=== PATIENT | male | born 1990 | race Caucasian/White ===

== ENCOUNTER → 2023-01-16 15:02 | Outpatient (CLI) | payer BC, SELFPAY ==
[2023-01-16 16:56] LABS: Basophils # 0.1 K/mm3 (0-0.2); Basophils % 0.7 % (0.1-2.0); Eosinophils # 0.7 K/mm3 (0.0-0.4); Eosinophils % 7.3 % (0.1-12.0); Hematocrit 45.3 % (42.0-52.0); Hemoglobin 15.1 g/dL (14.1-18.0); Lymphocytes # 2.8 K/mm3 (0.7-4.5); Lymphocytes % 30.9 % (10-50); Mean Corpuscular HGB Conc 33.3 g/dL (31.8-35.4); Mean Corpuscular Hemoglobin 29.8 pg (27.0-31.2); Mean Corpuscular Volume 89.5 fl (80-94); Mean Platelet Volume 7.1 fl (7.4-10.4); Monocytes # 0.5 K/mm3 (0.1-1.0); Monocytes % 5.4 % (1.7-9.3); Neutrophils % 55.7 % (37.0-80.0); Platelet Count 230 K/mm3 (142-424); Red Blood Count 5.07 M/mm3 (4.60-6.20); Red Cell Distribution Width 12.9 % (11.5-17.5); White Blood Count 8.9 K/mm3 (4.8-10.8)
[2023-01-16 17:10] LABS: Chloride 100 mmol/L (98-107); Potassium 4.7 mmoL/L (3.5-5.1); Sodium 139 mmol/L (136-145)
[2023-01-16 17:12] LABS: Blood Urea Nitrogen 14 mg/dl (9-20); Estimated Glomerular Filt Rate 97 ml/min (>60); GFR (African American) 117 ML/MIN (>60)
[2023-01-16 17:13] LABS: Alanine Aminotransferase 62 U/L (12-78); Albumin Level 4.3 g/dl (3.5-5.0); Albumin/Globulin Ratio 1.3 (1.1-1.8); Alkaline Phosphatase 61 U/L (38-126); Anion Gap 15.7 mEq/L (5-15); Aspartate Amino Transferase 52 U/L (17-59); Bilirubin,Total 0.6 mg/dl (0.2-1.3); Calcium 9.2 mg/dl (8.4-10.2); Carbon Dioxide 28 mmol/L (22.0-30.0); Globulin 3.4 g/dL (1.3-3.2); Glucose 97 mg/dl (74-100); Total Protein,Serum 7.7 g/dl (6.3-8.2); Uric Acid 7.4 mg/dl (3.5-8.5)
[2023-01-16 17:40] LABS: Thyroid Stimulating Hormone 2.33 uIU/mL (0.465-4.68)
[2023-01-16 17:54] LABS: Erythrocyte Sedimentation Rate 20 mm/hr (0-15)
[2023-01-16 18:06] LABS: Hemoglobin A1C 5.5 % (4.0-6.0)
[2023-01-18 12:37] LABS: RA Latex Turbid. <10.0 IU/mL (<14.0)
[2023-01-21 11:15] LABS: Antinuclear Antibodies, IFA Negative (.)
[2023-01-25 21:05] LABS: Antinuclear Antibodies (ANA) Negative
== END ==
PROVIDERS: PCP Nurse Practitioner Family; Visit Provider Nurse Practitioner Family
DX: R53.83 Other fatigue; Z79.899 Other long term (current) drug therapy
CPT/HCPCS: 80053; 83036; 84443; 84550; 85025; 85651; 86038; 86225; 86235; 86431

== ENCOUNTER → 2023-05-16 23:35 | Outpatient (CLI) | payer BC, SELFPAY ==
[2023-05-16 18:04] LABS: Cholesterol 194 mg/dl (140-200); HDL Cholesterol 28 mg/dl (40-60); Triglycerides 147 mg/dl (30-150); VLDL Cholesterol 29 mg/dL (0-40)
[2023-05-16 18:05] LABS: Chol/HDL Ratio 6.9 (1-3.5)
[2023-05-16 18:15] LABS: Direct LDL Cholesterol 129.28 mg/dL (100-129)
[2023-05-18 09:23] LABS: Testosterone,Total 275 ng/dL (264-916)
== END ==
PROVIDERS: PCP Nurse Practitioner Family; Visit Provider Nurse Practitioner Family
DX: I10 Essential (primary) hypertension (principal); R53.83 Other fatigue
CPT/HCPCS: 80061; 84403

== ENCOUNTER 2024-03-30 10:42 | Outpatient (CLI) | payer BC, SELFPAY ==
[2024-03-30 17:33] LABS: Basophils # 0.1 K/mm3 (0-0.2); Basophils % 1.1 % (0.1-2.0); Eosinophils # 0.7 K/mm3 (0.0-0.4); Eosinophils % 8.7 % (0.1-12.0); Hematocrit 46.8 % (42.0-52.0); Hemoglobin 15.6 g/dL (14.1-18.0); Lymphocytes # 1.7 K/mm3 (0.7-4.5); Lymphocytes % 21.9 % (10-50); Mean Corpuscular HGB Conc 33.2 g/dL (31.8-35.4); Mean Corpuscular Hemoglobin 30.4 pg (27.0-31.2); Mean Corpuscular Volume 91.3 fl (80-94); Mean Platelet Volume 9.7 fl (7.4-10.4); Monocytes # 0.7 K/mm3 (0.1-1.0); Monocytes % 8.7 % (1.7-9.3); Neutrophils # 4.5 K/mm3 (1.8-7.8); Neutrophils % 59.6 % (37.0-80.0); Platelet Count 210 K/mm3 (142-424); Red Blood Count 5.13 M/mm3 (4.60-6.20); Red Cell Distribution Width 13.3 % (11.5-17.5); White Blood Count 7.5 K/mm3 (4.8-10.8)
[2024-03-30 17:46] LABS: Chloride 107 mmol/L (98-107)
[2024-03-30 17:49] LABS: Alanine Aminotransferase 54 U/L (12-78); Albumin Level 4.3 g/dl (3.5-5.0); Albumin/Globulin Ratio 1.3 (1.1-1.8); Alkaline Phosphatase 48 U/L (38-126); Aspartate Amino Transferase 50 U/L (17-59); Bilirubin,Total 0.5 mg/dl (0.2-1.3); Blood Urea Nitrogen 10 mg/dl (9-20); Calcium 9.1 mg/dl (8.4-10.2); Cholesterol 206 mg/dl (140-200); Estimated Glomerular Filt Rate 85 ml/min (>60); GFR (African American) 103 ML/MIN (>60); Globulin 3.2 g/dL (1.3-3.2); Glucose 77 mg/dl (74-100); Total Protein,Serum 7.5 g/dl (6.3-8.2); Triglycerides 73 mg/dl (30-150); VLDL Cholesterol 15 mg/dL (0-40)
[2024-03-30 17:50] LABS: Chol/HDL Ratio 5.7 (1-3.5); HDL Cholesterol 36 mg/dl (40-60)
[2024-03-30 18:01] LABS: Direct LDL Cholesterol 148.58 mg/dL (100-129)
[2024-03-30 18:11] LABS: 25-OH Vitamin D, Total 42.4 ng/mL (30-100)
[2024-03-30 19:30] LABS: Hemoglobin A1C 5.5 % (4.0-6.0)
[2024-03-30 21:51] LABS: Carbon Dioxide 24 mmol/L (22.0-30.0); Sodium 141 mmol/L (136-145)
[2024-03-31 15:19] LABS: HIV (1&2) Antibody Rapid NON REACTIVE
[2024-04-01 08:34] LABS: HCV Ab Non Reactive (Non Reactive)
[2024-04-01 15:04] LABS: Testosterone,Total 172 ng/dL (264-916)
== END 2024-03-30 23:59 | disposition home or self-care (01) ==
LOC: LAB.DROPOF 04-01 10:43
PROVIDERS: PCP Nurse Practitioner Family; Visit Provider Nurse Practitioner Family
DX: Z11.59 Encounter for screening for other viral diseases (principal); Z11.4 Encounter for screening for human immunodeficiency virus [HIV]; E55.9 Vitamin D deficiency, unspecified; I10 Essential (primary) hypertension; Z87.891 Personal history of nicotine dependence; E66.9 Obesity, unspecified; R79.89 Other specified abnormal findings of blood chemistry; R73.03 Prediabetes; Z68.41 Body mass index [BMI] 40.0-44.9, adult
CPT/HCPCS: 80053; 80061; 82306; 83036; 84403; 85025

== ENCOUNTER 2024-10-05 16:47 | Outpatient (CLI) | payer BC, SELFPAY ==
[2024-10-05 16:35] LABS: Basophils # 0.1 K/mm3 (0-0.2); Basophils % 0.9 % (0.1-2.0); Eosinophils # 0.7 K/mm3 (0.0-0.4); Eosinophils % 8.7 % (0.1-12.0); Hematocrit 46.6 % (42.0-52.0); Hemoglobin 15.5 g/dL (14.1-18.0); Lymphocytes # 2.3 K/mm3 (0.7-4.5); Lymphocytes % 29.4 % (10-50); Mean Corpuscular HGB Conc 33.3 g/dL (31.8-35.4); Mean Corpuscular Hemoglobin 29.5 pg (27.0-31.2); Mean Corpuscular Volume 88.6 fl (80-94); Mean Platelet Volume 10.4 fl (7.4-10.4); Monocytes # 0.6 K/mm3 (0.1-1.0); Monocytes % 7.7 % (1.7-9.3); Neutrophils # 4.2 K/mm3 (1.8-7.8); Neutrophils % 53.2 % (37.0-80.0); Platelet Count 247 K/mm3 (142-424); Red Blood Count 5.26 M/mm3 (4.60-6.20); Red Cell Distribution Width 13.2 % (11.5-17.5)
[2024-10-06 08:25] LABS: Testosterone,Total 176 ng/dL (264-916)
== END 2024-10-05 23:59 | disposition home or self-care (01) ==
LOC: LAB.DROPOF 16:48
PROVIDERS: PCP Family Medicine; Visit Provider Family Medicine
DX: R79.89 Other specified abnormal findings of blood chemistry (principal)
CPT/HCPCS: 84403; 85025

== ENCOUNTER 2024-12-07 09:42 | Outpatient (CLI) | payer BC, SELFPAY ==
[2024-12-07 17:29] LABS: Basophils # 0.1 K/mm3 (0-0.2); Basophils % 0.8 % (0.1-2.0); Eosinophils # 0.6 K/mm3 (0.0-0.4); Eosinophils % 7.4 % (0.1-12.0); Hematocrit 53.6 % (42.0-52.0); Hemoglobin 17.4 g/dL (14.1-18.0); Lymphocytes # 2.1 K/mm3 (0.7-4.5); Lymphocytes % 28.1 % (10-50); Mean Corpuscular HGB Conc 32.5 g/dL (31.8-35.4); Mean Corpuscular Hemoglobin 29.1 pg (27.0-31.2); Mean Corpuscular Volume 89.6 fl (80-94); Mean Platelet Volume 10.8 fl (7.4-10.4); Monocytes # 0.5 K/mm3 (0.1-1.0); Monocytes % 6.7 % (1.7-9.3); Neutrophils # 4.3 K/mm3 (1.8-7.8); Neutrophils % 56.7 % (37.0-80.0); Platelet Count 234 K/mm3 (142-424); Red Blood Count 5.98 M/mm3 (4.60-6.20); Red Cell Distribution Width 12.8 % (11.5-17.5); White Blood Count 7.6 K/mm3 (4.8-10.8)
[2024-12-07 18:33] LABS: Alanine Aminotransferase 49 U/L (12-78); Albumin Level 4.5 g/dl (3.5-5.0); Albumin/Globulin Ratio 1.7 (1.1-1.8); Alkaline Phosphatase 44 U/L (38-126); Aspartate Amino Transferase 39 U/L (17-59); Bilirubin,Total 0.5 mg/dl (0.2-1.3); Blood Urea Nitrogen 11 mg/dl (9-20); Calcium 9.7 mg/dl (8.4-10.2); Carbon Dioxide 29 mmol/L (22.0-30.0); Chloride 107 mmol/L (98-107); Estimated Glomerular Filt Rate 109 ml/min (>60); GFR (African American) 132 ML/MIN (>60); Globulin 2.7 g/dL (1.3-3.2); Glucose 69 mg/dl (74-100); Sodium 140 mmol/L (136-145); Total Protein,Serum 7.2 g/dl (6.3-8.2); Uric Acid 8.5 mg/dl (3.5-8.5)
[2024-12-07 19:02] LABS: Thyroid Stimulating Hormone 2.82 uIU/mL (0.465-4.68)
[2024-12-09 08:32] LABS: Testosterone,Total 487 ng/dL (264-916)
== END 2024-12-07 23:59 | disposition home or self-care (01) ==
LOC: LAB.DROPOF 12-09 11:46
PROVIDERS: PCP Family Medicine; Visit Provider Family Medicine
DX: E66.9 Obesity, unspecified (principal); I10 Essential (primary) hypertension; M10.9 Gout, unspecified
CPT/HCPCS: 80053; 84403; 84443; 84550; 85025

== ENCOUNTER 2025-07-23 11:33 | Outpatient (CLI) | payer BC, SELFPAY ==
--- OUTSIDE RECORDS SUMMARY | 2025-06-24 05:00 | XMS_ITS | Encounter Summary ---
Author Organization [facility] Address [address] [place] [address] Phone [email or web address] Care Team Providers Care Field Support Specialist Name Role Phone Provider, No Primary Care Provider Unavailabl e Reason for Visit * Reason Comments Return to Work / Duty Encounter Details Date Type Department Care Team (Latest Contact Info) Description 06/24/2025 6:00 AM EDT Office [facility] [address] [facility] [address] [place] [address] Violeta Salcido MD [address] [place] [address] Encounter for fitness for duty examination (Primary Dx); Lateral epicondylitis of right elbow; Cubital tunnel syndrome on right Social History Tobacco Use Types Packs/Day Years Used Date Smoking Tobacco: Former E-Cigarettes Quit: 2024 Smokeless Tobacco: Former Chew Intimate Partner Violence Answer Date R ecorded Insults You 0 10/24/2020 Threatens You 0 10/24/2020 Screams at You 0 10/24/2020 Physically Hurt Not on file 10/24/2020 Intimate Partner Violence Score Not on file 10/24/2020 Depression Answer Date Recorded PHQ Total Score 0 09/11/2023 Stress Answer Date Recorded Stress in your Life Not on file 07/22/2024 Dealing with Stress 3 07/22/2024 Sex and Gender Information Value Date Recorded Sex Assigned at Not on file 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 Gender Identity Not on file Sexual Orientation Not on file documented as of this encounter Last Filed Vital Signs Vital Sign Reading Time Taken Comments Blood Pressure 133/87 06/24/2025 5:54 AM EDT Pulse 87 06/24/2025 5:54 AM EDT Temperature - - Respiratory Rate 14 06/24/2025 5:54 AM EDT Oxygen Saturation - - Inhaled Oxygen Concentration - - Weight - - Height - - Body Mass Index - - documented in this encounter Patient Instructions * Patient Instructions* Violeta Salcido MD - 06/24/2025 6:00 AM EDT Reintro on 06/24/25 x 10 days then full duty after Follow up with personal doctor as needed documented in this encounter Progress Notes * Violeta Salcido MD - 06/24/2025 6:00 AM EDT Subjective Rex Sanchez is a 35 y.o. male who presents for personal return to work. Workday ID #: [id number] Cost Center: MA0 Length of Time in Current Group: 4 years Shift: 1 Employer: [employer] Employee Status: Full-time GL Name: James San Case #: [id number] Body Part/ Side: right elbow Date of Injury: 05/11/2025 Denied Claim : 06/22/25 - Kenzie Mix DOS: NA PROCEDURE: Pending MRI SURGEON: Jalen and his PA RELEASE: 06/24/25 Personal fit for duty. His claim has been denied base on date of injury per hospice team lead. He has notmissed a day of work with denial from [facility]. He has been off all jobs since May. ~ 3-4 weeks. He called Jalen's office and he medical stafff released him. Denies changes in elbow but states he can't afford to be off work. Hold on proceeding with MRI with personal insurance for now. He reports mild improvement with therapy. A little pain but not like it was . He did not go to therapy yesterday d/t denial. He did not have a follow up appt b/c he was pending MRI approval. Pain rated in general at rest 09/25. Triage nurse: Yoli Serrano RN HPI TM has been released back to full duty following work comp claim denial. TM was restricted, did therapy for 4 weeks prior to denial. He went to see his specialist and was released to full duty. He has some soreness but feels ready to RTW. No numbness or tingling. History Reviewed: Tobacco Allergies Meds Problems Med Hx Surg Hx Objective Visit Vitals BP 133/87 (Patient Position: Sitting) Pulse 87 Resp 14 Smoking Status Former Review of Systems Constitutional: Negative. Musculoskeletal: No additional complaints except in CC and HPI. PHQ-9 Total Score: 0 (05/24/2025 8:05 AM) Physical Exam Constitutional: Appears well-developed. BMI >/= 40 (Class 3 Obese). No distress. Nursing note and vitals reviewed. Musculoskeletal: Right Elbow Inspection Swelling: none Erythema: none Palpation Warmth: normal Tenderness: mild at Lateral epicondyle Tinel's: negative UN Subluxation: negative Vascular Pulses: present and normal Neuromotor ROM: normal without pain on PROM Strength: good Customer Service Sales Associate: good Sensation: light touch - intact Special Tests Cozen's: mild Maudsley: negative Pain with gripping with elbow fully extended: negative Pain with resisted supination: mild Pain with resisted pronation: negative Elbow Flexion Test: negative Assessment: ICD-10-CM ICD-9-CM 1. Encounter for fitness for duty examination Z02.89 V70.5 2. Lateral epicondylitis of right elbow M77.11 726.32 3. Cubital tunnel syndrome on right G56.21 354.2 No orders of the defined types were placed in this encounter. Patient Instructions Reintro on 06/24/25 x 10 days then full duty after Follow up with personal doctor as needed documented in this encounter Plan of Treatment Not on file documented as of this encounter Visit Diagnoses Diagnosis Encounter for fitness for duty examination- Primary Lateral epicondylitis of right elbow Cubital tunnel syndrome on right documented in this encounter Care Teams Field Support Specialist Relationship Specialty Start Date End Date Provider, [place] [address] PCP - General Drywall Sander 01/15/22 documented as of this encounter
[2025-07-23 17:05] LABS: Hematocrit 43.9 % (42.0-52.0); Hemoglobin 15.1 g/dL (14.1-18.0); Immature Granulocytes % 0.3 %; Mean Corpuscular HGB Conc 34.4 g/dL (31.8-35.4); Mean Corpuscular Hemoglobin 29.7 pg (27.0-31.2); Mean Corpuscular Volume 86.2 fl (80-94); Nucleated Red Blood Cells % 0 %; Platelet Count 258 K/mm3 (142-424); Red Blood Count 5.09 M/mm3 (4.60-6.20); Red Cell Distribution Width-SD 39.7 fL; White Blood Count 10.6 K/mm3 (4.8-10.8)
[2025-07-23 18:07] LABS: Alanine Aminotransferase 46 U/L (12-78); Albumin Level 4.5 g/dl (3.5-5.0); Albumin/Globulin Ratio 1.3 (1.1-1.8); Alkaline Phosphatase 66 U/L (38-126); Anion Gap 13.6 mEq/L (5-15); Aspartate Amino Transferase 42 U/L (17-59); Bilirubin,Total 0.7 mg/dl (0.2-1.3); Blood Urea Nitrogen 13 mg/dl (9-20); Calcium 9.7 mg/dl (8.4-10.2); Carbon Dioxide 27 mmol/L (22.0-30.0); Chloride 101 mmol/L (98-107); Creatinine,Serum 0.90 mg/dl (0.66-1.25); Estimated Glomerular Filt Rate 95 ml/min (>60); GFR (African American) 115 ML/MIN (>60); Globulin 3.6 g/dL (1.3-3.2); Glucose 72 mg/dl (74-100); Potassium 4.6 mmoL/L (3.5-5.1); Sodium 137 mmol/L (136-145); Total Protein,Serum 8.1 g/dl (6.3-8.2)
--- OUTSIDE RECORDS SUMMARY | 2025-07-26 11:36 | XMS_ITS | Clinical Summary ---
Author Organization [facility] Address [address] [place] [address] Phone [email or web address] Care Team Providers Care Wire Frame Lamp Shade Maker Name Role Phone Provider, No Primary Care Provider Unavailabl e Allergies No known active allergies Medications loratadine (CLARITIN) 10 MG tablet Take 10 mg by mouth 1 (one) time each day. Active Cholecalcifero l (Vitamin D) 50 MCG (1999) capsule Active testosterone cypionate, DEPO-TESTOSTER ONE, injection 200 mg/mL IM 200 MG/ML INJECT 0.5 ML (CC) INTRAMUSCULARLY WEEKLY Active acetaminophen (TYLENOL 8 HOUR) 650 MG 8 hr tablet Take 650 mg by mouth. Do not crush, chew, or split. Active Semaglutide-We ight Management (Wegovy 0.25 MG/0.5ML SC) 0.25 MG/0.5ML solution auto-injector Inject by subcutaneous route. Activ e Active Problems Problem Noted Date Diagnosed Date Encounter for fitness for duty examination 01/15 Encounters Date Type Department Care Team Description 06/24/2025 6:00 AM EDT Office Visit [facility] [address] [place] [address] Violeta Salcido MD Encounter for fitness for duty examination (Primary Dx); Lateral epicondylitis of right elbow; Cubital tunnel syndrome on right 06/23/[address] [facility] [address] [place] [address] Charissa Olvera, EMT 06/23/[address] [facility] [address] [place] [address] Maria Luisa Del Rosario KINGS 06/14/[address] [facility] [address] [place] [address] Yoli Serrano RN 06/10/[address] 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 Gender Identity Not on file Sexual Orientation Not on file Last Filed Vital Signs Vital Sign Reading Time Taken Comments Blood Pressure 133/87 06/24/2025 5:54 AM EDT Pulse 87 06/24/2025 5:54 AM EDT Temperature 36.8 C (98.3 F) 02/23/2025 9:06 AM EDT Respiratory Rate 14 06/24/2025 5:54 AM EDT Oxygen Saturation 97% 06/10/2025 7:54 AM EDT Inhaled Oxygen Concentration - - Weight 158 kg (347 lb 9.6 oz) 05/24/2025 8:01 AM EDT Height 185.4 cm (6' 1 ) 05/24/2025 8:01 AM EDT Body Mass Index 45.86 05/24/2025 8:01 AM EDT Plan of Treatment Health Maintenance Due Date Last Done Comments Dental Cleaning/Exam 1988 HIV Screening 1988 Hepatitis C Screening 1988 HPV Immunization (1 - Male 3 -dose series) 2003 Hep B Infection Screening - Triple Screen 2006 Hepatitis B Immunization (1 of 3 - 19+ 3-dose series) 2007 Tetanus Diphtheria and Pertu ssis Immunization (1 - Tdap) 2007 Annual Preventive Exam 08/17/2020 08/17/2019 Covid-19 Immunization (1 - 2 025-26 season) 2025 Influenza Immunization (#1) 2025 HIB Immunization Aged Out No longer e ligible based on patient's age to complete this topic Hepatitis A Immunization Aged Out No longer eligible based on patient's age to complete this topic Pneumococcal Immunization Aged Out No longer eligible based on patient's age to complete this topic Polio Immunization Aged Out No longer eligible based on patient's age to complete this topic Varicella Immunization Aged Out No lo nger eligible based on patient's age to complete this topic Insurance OPT OUT NO COPAY NB Care Teams Wire Frame Lamp Shade Maker Relationship Specialty Start Date End Date Provider, [place] [address] PCP - General Timers Inspector 01/15/22
--- OUTSIDE RECORDS SUMMARY | 2025-07-26 11:37 | XMS_ITS | Encounter Summary ---
Author Organization [facility] Address [address] [place] [address] Phone [email or web address] Care Team Providers Care Belt Brander Name Role Phone Provider, No Primary Care Provider Unavailabl e Reason for Visit * Reason Onset Date Comments Return to Work / Duty 06/23/2025 CASE UPDAT E/COMMUNICATION- MSIG-D Encounter Details Date Type Department Care Team (Late st Contact Info) Description 06/23/[address] [place] [address] Maria Luisa Del Rosario MA [address] [place] [address] Social History Tobacco Use Types Packs/Day Years Used Date Smoking Tobacco: Every Day E-Cigarettes Smokeless Tobacco: Former Chew Intimate Partner Violence [...] on file 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 Gender Identity Not on file Sexual Orientation Not on file documented as of this encounter Progress Notes * Maria Luisa Del Rosario MA - 06/23/2025 9:17 AM EDT Received DENIAL from [facility] for RIGHT ELBOW Reason- Work not proximate cause Adjustor- Kenzie Mix Claim # [id number] DOI - 05.11.2025 documented in this encounter Plan of Treatment Not on file documented as of this encounter Visit Diagnoses Not on filedocumented in this encounter Care Teams Belt Brander Relationship Specialty Start Date End Date Provider, [place] [address] PCP - General Seconds Handler 01/15/22 documented as of this encounter
--- OUTSIDE RECORDS SUMMARY | 2025-07-26 11:37 | XMS_ITS | Continuity of Care Document ---
Author Organization [facility], ORTHOPEDICS [address] [place] [address] Care Team Providers Care Physical Therapy Attendant Name Role Phone IVY DALEY Phys. Med. & Rehab NARINDER BHATTI Orthopedic Surgeon [phone] CAITLYN ZAMARRIPA Account Classification Clerk [phone] Assessment Encounter Date Assessment Date Assessment LastModified by Organization Details LastModified Time 06/09/2025 06/09/2025 Intermittent pain at the left medial epicondyle [email or web address] Not available 06/07/2025 09:08:49 Plan of Treatment Reminders Order Date Submit Date Provider Last Modified By Organization Details Last Modified Time Details Appointments None record ed. Lab None record ed. Referral None record ed. Procedures None record ed. Surgeries None record ed. Imaging None record ed. Medication Orders None record ed. Patient TargetsNo targets recorded. Patient InstructionsNo instructions recorded. Reason for Referral None Reported. Problems No Known Problems Procedures Surgical History Date Name Laterality Status Provider Name and Address Organization Details Recorded Time 10/21/19 25 OT Therapeutic Exercise completed KARENA GARCIA/L, CHT [address] [place], [address], [facility] 10/21/2024 15:01:28 10/16/19 25 OT Therapeutic Exercise completed KARENA PINA/L, CHT [address] [place], [address], [facility] 10/16/2024 08:30:24 10/13/19 25 OT Therapeutic Exercise cancelled KARENA GARCIA/L, CHT [address] [place], [address], [facility] 10/13/2024 13:05:53 10/09/19 25 OT Therapeutic Exercise completed BASHIR COWAN, OTR/L, CHT [address] [place], [address], [facility] 10/09/2024 10:02:43 10/06/19 25 OT Therapeutic Exercise completed MACK GARCIA, OTR/L, CHT [address] [place], [address], [facility] 10/06/2024 16:31:00 09/11/20 24 OT Therapeutic Exercise completed MACK GARCIA, OTR/L, CHT [address] [place], [address], [facility] 09/11/2024 10:46:46 09/11/20 24 PT Hot/Cold Pack completed MACK GARCIA, OTR/L, CHT [address] [place], [address], [facility] 09/10/2024 09:40:43 09/02/20 24 OT Therapeutic Exercise completed MACK GARCIA, OTR/L, CHT [address] [place], [address], [facility] 09/02/2024 10:31:08 09/02/20 24 PT Hot/Cold Pack completed MACK GARCIA, OTR/L, CHT [address] [place], [address], [facility] 09/01/2024 16:40:01 08/26/20 24 OT Therapeutic Exercise completed MACK GARCIA, OTR/L, CHT [address] [place], [address], [facility] 08/26/2024 10:47:32 08/26/20 24 OT Manual Therapy completed MACK GARCIA, OTR/L, CHT [address] [place], [address], [facility] 08/25/2024 08:17:13 08/26/20 24 PT Hot/Cold Pack completed MACK GARCIA, OTR/L, CHT [address] [place], [address], [facility] 08/25/2024 08:17:13 08/19/20 24 OT Therapeutic Exercise completed MACK GARCIA, OTR/L, CHT [address] [place], [address], [facility] 08/19/2024 11:17:18 08/19/20 24 OT Manual Therapy completed MACK GARCIA, OTR/L, CHT [address] [place], [address], [facility] 08/19/2024 11:17:25 08/19/20 24 PT Hot/Cold Pack completed MACK GARCIA, OTR/L, CHT [address] [place], [address], [facility] 08/19/2024 07:53:38 08/05/20 24 OT Therapeutic Exercise completed MACK GARCIA, OTR/L, CHT [address] [place], [address], [facility] 08/05/2024 10:36:45 08/05/20 24 OT Manual Therapy completed MACK GARCIA, OTR/L, CHT [address] [place], [address], [facility] 08/05/2024 10:36:52 08/05/20 24 PT Hot/Cold Pack completed MACK GARCIA, OTR/L, CHT [address] [place], [address], [facility] 08/05/2024 10:37:11 07/29/20 24 OT Therapeutic Exercise completed MACK GARCIA, OTR/L, CHT [address] [place], [address], [facility] 07/29/2024 11:53:56 07/29/20 24 OT Manual Therapy completed MACK GARCIA, OTR/L, CHT [address] [place], [address], [facility] 07/29/2024 11:54:00 07/29/20 24 PT Hot/Cold Pack completed MACK GARCIA, OTR/L, CHT [address] [place], [address], [facility] 07/29/2024 07:40:32 07/22/20 24 Orthotic, WHO, Static Custom completed MACK GARCIA, OTR/L, CHT [address] [place], [address], [facility] 07/22/2024 14:01:44 07/22/20 24 OT Evaluation - Moderate complexity completed MACK GARCIA, OTR/L, CHT [address] [place], [address], [facility] 07/22/2024 14:01:39 07/22/20 24 OT Therapeutic Exercise completed MACK GARCIA, OTR/L, CHT [address] [place], [address], [facility] 07/22/2024 14:30:45 07/22/20 24 PT Hot/Cold Pack completed MACK GARCIA, OTR/L, CHT [address] [place], [address], [facility] 07/22/2024 14:01:45 07/09/20 24 Op Note completed NARINDER BHATTI MD [address] [place] [address], [address], [facility] 07/09/2024 10:13:51 06/15/20 24 Electromyography (EMG) with Nerve Conduction Study (NCV) completed IVY DALEY MD [address] [place] [address], [address], [facility] 06/15/2024 15:11:52 [place] Teeth Extraction completed Queenie Gibson [facility] 01/23/2024 16:02:03 Imaging Results None recorded. Procedure Notes None recorded. Medical Equipment None Reported. Allergies No known drug allergies Medications Name Sig Start Date Stop Date Status Note LastModified by Organization Details LastModified Time Claritin 10 mg tablet Take 1 tablet every day by oral route. active Not Available Not Available No t Available meloxicam 15 mg tablet Take 1 tablet every day by oral route. 07/09 completed no longer taking per patient 06/17/20 Not Available Not Available Not Available hydrocodo ne 10 mg-acetam inophen 325 mg tablet TAKE 1/2 - 1 TABLET EVERY 6 HOURS NEEDED FOR SEVERE POST SURGICAL PAIN 07/22 completed Not Available Not Available Not Available cefadroxi l 500 mg capsule Take 2 capsules every day by oral route. 08/19 completed no longer taking per patient 06/17/20 Not Available Not Available Not Available meloxicam 7.5 mg tablet TAKE 1 TABLET PO DAILY WITH FOOD REGARDLE SS OF PAIN FOR 1 WEEK, THEN ONLY NEEDED FOR PAIN RELIEF THEREAFT ER 07/22 completed Not Available Not Available Not Available Depo-Test osterone 200 mg/mL intramusc ular oil Inject 1 mL every 4 weeks by intramus cular route. active Not Available Not Available No t Available gabapenti n 100 mg capsule TAKE 1 CAPSULE EVERY NIGHT BEFORE BED FOR 1 WEEK 07/22 completed Not Available Not Available Not Available Percocet 5 mg-325 mg tablet Take 1 tablet every 6 hours by oral route. 08/19 completed no longer taking per patient 06/17/20 Not Available Not Available Not Available Vitamin D 06/09 completed Not Available Not Available Not Available Wegovy 0.25 mg/0.5 mL subcutane ous pen injector Inject by subcutan eous route. 06/09 completed Not Available Not Available Not Available Vitals Date Recorded Body height Body mass index (BMI) Body weight Provider Name and Address Organization Details Last Updated DateTime 06/09/2025 187.96 cm 45.8 kg/m2 521712.48 g Kendra Durant [facility] 06/09/2025 14:22:11 Social History Question Answer Notes LastModified by [employer] Details LastModified Time Tobacco Smoking Status Never Smoker Queenie de leon, [facility] 01/23/2024 16:01:53 What Is Your Relationship Status? [email or web address] Information not available 01/23/2024 Sex: Male Functional Status Question Answer Note LastModified by Organizat ion Details LastModified Time Do you or have you ever used any other forms of tobacco or nicotine? Yes [email or web address] Information not available 01/23/2024 What is your level of alcohol consumption? None [email or web address] Information not available 01/23/2024 Do you or have you ever used smokeless tobacco? Currently chews tobacco [email or web address] Information not available 01/23/2024 Mental Status None recorded. Family History Relationship Description Onset Age of this Age Resolved Age Notes LastModified by Organization Details LastModified Time Father Diabetes mellitus Not available 2023 16:01:31 Unspecified Relation Family history of malignant neoplasm [email or web address] Not available 2023 16:01:38 Medical History Condition Response Diabetes N Cancer N Kidney Stones Y Stroke N Thyroid Problems N Past Encounters Encounter ID Performer Location Encounter Start Date Encounter Closed Date Diagnosis/Indication Diagnosis SNOMED-CT Code Diagnosis ICD10 Code Diagnosis IMO Codes Diagnosis Note [id number] NARINDER BHATTI MD [facility] [address] [place] [address] 06/09/2025 14:09:36 06/09/2025 14:52:11 Right lateral elbow tendinopathy 2916909649 01991 M77.11 [id number] He was asymptomat ic until an acute injury at work, I want a get an MRI to look for a tear of the common extensor/E CRB attachment . 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 [id number] 88909 G56.01 [id number] He is monitoring this, this has been unchanged for some time Health Concerns Section Related Observation LastModified by Organization Detai ls LastModified Time None Recorded Concern Status LastModified by Organization Details LastModified Time None Recorded Payers Encounter Date Sequence Insurance Name Policy Number Policy Ortiz Covered Member ID Ortiz Member ID Guarantor Name 06/09/2025 JAY Sanchez Notes Date Note Type Note Provider Name and Address Organization Details Recorded Time 06/09/2025 text/html Consult requested by: [facility] Physician: Hand dominance: RightLocation: Right Elbow Pain level: 5 /10 - at worst Date of injury: 05/11/2025Duration: 4 weeks Recent Surgery: YesProcedure: Left lateral epicondyle debridement ; Left Subcutaneous ulnar nerve transpositionDate of surgery: 4Duration: 11 monthsSurgeon(If Known): Narinder Bhatti MD In office procedure? No Previous upper extremity surgery? YesProcedure:Surgeon (if known):Have you or an immediate family member ever seen our hand surgeons before? 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 YesIs this injury associated with a Workers Compensation claim? Yes Patient arrived in: OT splint Semiautomatic Taper Operator Strength: right: left: Mr. Sanchez is here for a new problem, rt elbow pain. 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 Pt states ever since, he has had pain in the elbow that is radiating down forearm/into wrist. He reports sharp pain with movement as well as with gripping/pinching. He also reports n/t in rt hand. He reports minimal improvement with therapy that he has been doing twice a week at [facility].- (EMG for lt in chart, has not had EMG for rt hand) NARINDER BHATTI MD [address] [place] [address], [address], [facility] 06/09/2025 14:42:42
--- OUTSIDE RECORDS SUMMARY | 2025-07-26 11:37 | XMS_ITS | Clinical Summary ---
Author Organization Healthcare Address [address] [place] [address] Care Team Providers Care Sort Manager Name Role Phone Sujata Mejia APRN Primary Care Provider [phone] Allergies No known active allergies Medications Vitamin D3 1.25 MG (32772 UT) capsule 12/24/19 24 Active colchicine 0.6 MG tablet Take 1 tablet (0.6 mg) by mouth. Active hydrocortisone 2.5 % cream APPLY CREAM TO AFFECTED AREA TWICE DAILY NEEDED FOR RASH 09/12/20 23 Active loratadine (Claritin) 10 MG tablet Take 1 tablet (10 mg) by mouth Daily. Activ e meloxicam (Mobic) 15 MG tablet 12/16/19 24 Active Luer Lock Safety Syringes 23G X 1 3 ML misc USE DIRECTED 12/30/19 24 Active testosterone cypionate (Depo-Testoste kate) 200 MG/ML injection INJECT 0.5 ML INTRAMUSCULARLY EVERY 2 WEEKS 01/07/20 24 Active Social History Tobacco Use Types Packs/Day Years Used Date Smoking Tobacco: Former Cigarettes 1 4 2 007 - 2010 Smokeless Tobacco: Former Snuff Quit: 2021 Tobacco Cessation:Counseling Given: Not Answered Alcohol Use Standard Drinks/Week Comments Yes 0 (1 standard drink = 0.6 oz pur e alcohol) social PHQ-2 Answer Date Recorded Patient Health Questionnaire-2 Score 0 01/14/2024 Sex and Gender Information Value Date Recorded Sex Assigned at Male 01/14/2024 2:06 PM EDT Legal Sex Male 3:40 PM EDT Gender Identity Male 01/14/2024 2:06 PM EDT Sexual Orientation Straight 01/14/2024 2: 06 PM EDT Last Filed Vital Signs Vital Sign Reading Time Taken Comments Blood Pressure 126/86 01/14/2024 2:54 PM EDT Pulse 81 01/14/2024 2:54 PM EDT Temperature 36.6 C (97.8 F) 01/14/2024 2:54 PM EDT Respiratory Rate 16 01/14/2024 2:54 PM EDT Oxygen Saturation 96% 01/14/2024 2:54 PM EDT Inhaled Oxygen Concentration - - Weight 163 kg (359 lb 5.6 oz) 01/14/2024 2:54 PM EDT Height 188 cm (6' 2 ) 01/14/2024 2:54 PM EDT Body Mass Index 46.14 01/14/2024 2:54 PM EDT Plan of Treatment Health Maintenance Due Date Last Done Comments [facility]-HIV Screening 1988 [facility]-Hepatitis C Screening 1988 [facility]-Infant/Child/Adol SDOH Screenings 1988 [facility]-Varicella Vaccines (1 of 2 - 13+ 2-dose series) 2001 [facility]- SDOH Screenings 2006 [facility]-Adult SDOH Screenings 2006 [facility]-DTaP,Tdap,and Td Vaccine s (1 - Tdap) 2007 [facility]-Hepatitis B Vaccines (1 of 3 - 19+ 3-dose series) 2007 HPV Vaccines (1 - 3-dose SCD M series) 2015 [facility]-Depression Screening 01/13/2025 01/14/2024 [id number] Vaccine (1 - 20 24-25 season) 2025 [facility]-Influenza Vaccine (#1) 2025 [facility]-Zoster Vaccines (1 of 2) 2038 [facility]-Obesity Intervention Completed 01/14/2024 [facility]-HIB Vaccines Aged Out No longer e ligible based on patient's age to complete this topic [facility]-Hepatitis A Vaccines Aged Out No longer eligible based on patient's age to complete this topic [facility]-IPV Vaccines Aged Out No longer e ligible based on patient's age to complete this topic [facility]-Pneumococcal Vaccine: Pediatrics (0 to 5 Years) and At-Risk Patients (6 to 49 Years) Aged Out No long er eligible based on patient's age to complete this topic [facility]-Rotavirus Vaccines Aged Out No lo nger eligible based on patient's age to complete this topic Insurance ANTH Care Teams Sort Manager Relationship Specialty Start Date End Date Sujata Mejia APRN [address] [place] [address] PCP - General 01/14/24
--- OUTSIDE RECORDS SUMMARY | 2025-07-26 11:37 | XMS_ITS | Data Portability ---
Author Organization [facility] Address [address] [place] [address] Care Team Providers Care Senior Net Developer Name Role Phone IVY DALEY Phys. Med. & Rehab [phone] NARINDER RAO Orthopedic Surgeon CAITLYN ZAMARRIPA Buzzsaw Operator Assessment Encounter Date Assessment Date Assessment LastModified by Organization Details LastModified Time 10/09/2024 10/09/2024 MLF 1) mild restriction with wrist flexion secondary to pain irritation along the lateral epicondyle. 2) extrinsic tightness with imbalances noted. 3) restriction of full tolerance to mechanical stress with essential job tasks that require forceful and functional gripping and lifting. [email or web address] Not available 10/09/2024 10:02:44 10/16/2024 10/16/2024 MLF 1) mild restriction with wrist flexion secondary to pain irritation along the lateral epicondyle. 2) extrinsic tightness with imbalances noted. 3) restriction of full tolerance to mechanical stress with essential job tasks that require forceful and functional gripping and lifting. [email or web address] Not available 10/16/2024 08:30:24 10/21/2024 10/21/2024 Patient has met all therapy goals at this time and is recommended for discharge home exercise program as tolerated. [email or web address] Not available 10/21/2024 15:01:49 10/21/2024 10/21/2024 Intermittent pain at the left medial epicondyle [email or web address] Not available 10/21/2024 16:03:50 06/09/2025 06/09/2025 Intermittent pain at the left [...] record ed. Patient TargetsNo targets recorded. Patient Instructions Encounter Date Encounter Id Patient Instructions Last Modified By Organization Details Last Modified Time 10/21/2024 [id number] Patient is released to full duty. He is informed that the numbness may persist, but will hopefully improve and involve a small area. He will observe the medial epicondyle pain and follow-up if that becomes an issue. [email or web address] Not available 10/21/2024 16:04:22 Reason for Referral None Reported. Problems No Known Problems Procedures Surgical History Date Name Laterality Status Provider Name and Address Organization Details Recorded Time 10/21/19 25 OT Therapeutic Exercise completed MACK GARCIA OTR/L, CHT [address] [place], [address], [facility] 10/21/2024 15:01:28 10/16/19 25 OT Therapeutic Exercise completed BASHIR COWAN, OTR/L, CHT [address] [place], [address], [facility] 10/16/2024 08:30:24 10/13/19 25 OT Therapeutic Exercise cancelled MACK GARCIA OTR/L, CHT [address] [place], [address], [facility] 10/13/2024 13:05:53 10/09/19 25 OT Therapeutic Exercise completed BASHIR COWAN, OTR/L, CHT [address] [place], [address], [facility] 10/09/2024 10:02:43 10/06/19 25 OT Therapeutic Exercise completed MACK GARCIA OTR/L, CHT [address] [place], [address], [facility] 10/06/2024 16:31:00 09/11/20 24 OT Therapeutic Exercise completed MACK GARCIA OTR/L, CHT [address] [place], [address], [facility] 09/11/2024 10:46:46 09/11/20 24 PT Hot/Cold Pack completed MACK GARCIA, OTR/L, CHT [address] [place], [address], [facility] 09/10/2024 09:40:43 09/02/20 24 OT Therapeutic Exercise completed MACK GARCIA, OTR/L, CHT [address] [place], [address], [facility] 09/02/2024 10:31:08 09/02/20 24 PT Hot/Cold Pack completed MACK GARCIA, OTR/L, CHT [address] [place], [address], [facility] 09/01/2024 16:40:01 08/26/20 24 OT Therapeutic Exercise completed MACK GARCIA, OTR/L, CHT [address] [place], [address], [facility] 08/26/2024 10:47:32 08/26/20 24 OT Manual Therapy completed MACK GARCIA, OTR/L, CHT [address] [place], [address], [facility] 08/25/2024 08:17:13 08/26/20 24 PT Hot/Cold Pack completed MACK GARCIA, OTR/L, CHT [address] [place], [address], [facility] 08/25/2024 08:17:13 08/19/20 24 OT Therapeutic Exercise completed MACK GARCIA, OTR/L, CHT [address] [place], [address], [facility] 08/19/2024 11:17:18 08/19/20 24 OT Manual Therapy completed MACK GARCIA, OTR/L, CHT [address] [place], [address], [facility] 08/19/2024 11:17:25 08/19/20 24 PT Hot/Cold Pack completed MACK GARCIA OTR/L, CHT [address] [place], [address], [facility] 08/19/2024 07:53:38 08/05/20 24 OT Therapeutic Exercise completed MACK GARCIA, OTR/L, CHT [address] [place], [address], [facility] 08/05/2024 10:36:45 08/05/20 24 OT Manual Therapy completed MACK GARCIA OTR/L, CHT [address] [place], [address], [facility] 08/05/2024 10:36:52 08/05/20 24 PT Hot/Cold Pack completed MACK GARCIA OTR/L, CHT [address] [place], [address], [facility] 08/05/2024 10:37:11 07/29/20 24 OT Therapeutic Exercise completed MACK GARCIA OTR/L, CHT [address] [place], [address], [facility] 07/29/2024 11:53:56 07/29/20 24 OT Manual Therapy completed MACK GARCIA OTR/L, CHT [address] [place], [address], [facility] 07/29/2024 11:54:00 07/29/20 24 PT Hot/Cold Pack completed MACK GARCIA OTR/L, CHT [address] [place], [address], [facility] 07/29/2024 07:40:32 07/22/20 24 Orthotic, WHO, Static Custom completed MACK GARCIA OTR/L, CHT [address] [place], [address], [facility] 07/22/2024 14:01:44 07/22/20 24 OT Evaluation - Moderate complexity completed MACK GARCIA, OTR/L, CHT [address] [place], [address], [facility] 07/22/2024 14:01:39 11/06/20 24 OT Therapeutic Exercise completed MACK GARCIA, OTR/L, CHT [address] [place], [address], [facility] 07/22/2024 14:30:45 07/22/20 24 PT Hot/Cold Pack completed MACK GARCIA OTR/L, CHT [address] [place], [address], [facility] 07/22/2024 14:01:45 07/09/20 24 Op Note completed NARINDER RAO MD [address] [place], [address], [facility] 07/09/2024 10:13:51 06/15/20 Electromyography (EMG) with Nerve Conduction Study (NCV) completed IVY DALEY MD [address] [place], [address], [facility] 06/15/2024 15:11:52 [place] Teeth Extraction completed Queenie Gibson [facility] 01/23/2024 16:02:03 Imaging Results None recorded. Procedure [...] and Address Organization Details Last Updated DateTime 10/21/2024 187.96 cm 45.8 kg/m2 608244.48 g [facility] 10/21/2024 13:53:47 Date Recorded Body height Body mass index (BMI) Body weight Provider Name and Address Organization Details Last Updated DateTime 06/09/2025 187.96 cm 45.8 kg/m2 485233.48 g [facility] 06/09/2025 14:22:11 Social History Question Answer Notes LastModified by Triloq Details LastModified Time Tobacco Smoking Status Never Smoker Queenie Gibson [facility] 01/23/2024 16:01:53 What Is Your Relationship Status? [email or web address] Information not available 01/23/2024 Sex: Male Functional Status Question Answer Note LastModified by Triloq Details LastModified Time Do you or have you ever used any other forms of tobacco or nicotine? Yes [email or web address] Information not available 01/23/2024 What is your level of alcohol consumption? None [email or web address] Information not available 01/23/2024 Do you or have you ever used smokeless tobacco? Currently chews tobacco [email or web address] Information not available 01/23/2024 Mental Status None recorded. Family History Relationship Description Onset Age of this Age Resolved Age Notes LastModified by Organization Details LastModified Time Father Diabetes mellitus [email or web address] Not available 2023 16:01:31 Unspecified Relation Family history of malignant neoplasm [email or web address] Not available 2023 16:01:38 Medical History Condition Response Diabetes N Cancer N Kidney Stones Y Stroke N Thyroid Problems N Past Encounters Encounter ID Performer Location Encounter Start Date Encounter Closed Date Diagnosis/Indication Diagnosis SNOMED-CT Code Diagnosis ICD10 Code Diagnosis IMO Codes Diagnosis Note [id number] JAMES LEAL MD [facility] [address] [place] [address] 01/23/2024 15:31:18 01/23/2024 16:21:16 Male sterilization 147982265 Z30.2 [id number] JAMES LEAL MD SURGERY SCHEDULE [address] [place] [address] 03/06/2024 06:20:28 03/06/2024 06:21:29 Male sterilization 939160792 Z30.2 [id number] NARINDER RAO MD [facility] [address] [address] 05/15/2024 08:15:54 05/15/2024 09:00:27 Left lateral elbow tendinopathy 6485122107 35772 M77.12 Continue nonop treatment, therapy is doing all the right things, continue work restrictio ns, clarified no lifting more than 5 pounds no repetitive gripping Ulnar nerv e entrapment at elbow 703636606 G56.22 EMG/NCV, determine severity. Clinically , it does not wake him up at night, he has some tingling for [place]bs in the morning and occasional ly at work so we can observe this for now especially if his lateral epicondyli tis gets better nonoperati vely. [id number] NARINDER RAO MD [facility] [address] [address] 06/17/2024 11:51:29 06/17/2024 12:23:56 Left lateral elbow tendinopathy 5349890407 20632 M77.12 As he has not had significan t relief with nonoperati ve treatment and he requires surgical management for the cubital tunnel syndrome, he would benefit from lateral epicondyle debridemen t at the same time, he expresses a goal to return to work as soon as possible and this is the most direct way given the ulnar nerve issue Ulnar nerv e entrapment at elbow 459167057 G56.22 Advised subcutaneo us ulnar transposit ion due to the severity and the weakness which I did not appreciate at the last visit but was documented well by Dr. Daley. [id number] IVY DALEY MD [facility] [address] [place] [address] 06/15/2024 13:49:23 06/16/2024 13:14:13 Ulnar nerve entrapment at elbow 472237723 G56.22 Moderately -severe, with ongoing axonal loss on EMG. Ultrasound of ulnar nerve reveals compressio n at the cubital tunnel with proximal fascicular enlargemen t, swelling (increased from 7mm to 16mm). Left later al elbow tendinopathy 4034539776 64613 M77.12 Performed limited diagnostic US of ulnar nerve and common extensor tendon. - The common extensor tendon revealed a large tendon tear (approx 75%) with tendinitis and neovascula rization. Images uploaded to PACs for review. 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 Intermitte ntly symptomati c. [id number] NARINDER RAO MD SURGERY SCHEDULE [address] [place] [address] 07/09/2024 08:29:16 07/09/2024 08:29:51 [id number] JAZMIN HAWKINS PA-C [facility] [address] [place] [address] 07/22/2024 12:56:07 07/22/2024 13:30:34 Left lateral elbow tendinopathy 1221341923 54783 M77.12 Doing well status post left lateral epicondyle ctomy Ulnar nerv e entrapment at elbow 085219330 G56.22 Doing well status post left subcutaneo us ulnar nerve transposit ion [id number] MACK GARCIA, MIGUELR/L, CHT PHYSICAL THERAPY / HAND THERAPY [facility] [address] [place] [address] 07/22/2024 12:56:55 07/24/2024 16:42:30 Left lateral elbow tendinopathy 6017499197 64176 M77.12 Debridemen t/Rep. Ulnar nerv e entrapment at elbow 926717572 G56.22 SQUNT [id number] KARENA GARCIA/Veronica, T PHYSICAL THERAPY / [facility]APY [facility] [address] [place] [address] 07/29/2024 10:47:29 07/30/2024 04:33:17 Left lateral elbow tendinopathy 8101736989 97757 M77.12 Debridemen t/Rep. Ulnar nerv e entrapment at elbow 102767422 G56.22 SQUNT [id number] KARENA GARCIA/Veronica, T PHYSICAL THERAPY / HAND THERAPY [facility] [address] [place] [address] 08/05/2024 09:24:06 08/06/2024 04:48:44 Left lateral elbow tendinopathy 7938210803 22289 M77.12 Debridemen t/Rep. Ulnar nerv e entrapment at elbow 375444572 G56.22 SQUNT [id number] JAZMIN HAWKINS PA-C [facility] [address] [place] [address] 08/19/2024 09:54:20 08/19/2024 11:47:16 Left lateral elbow tendinopathy 3015685765 07350 M77.12 Doing well status post left lateral epicondyle debridemen t Ulnar nerv e entrapment at elbow 301592787 G56.22 Doing well status post left subcutaneo us ulnar nerve transposit ion [id number] KARENA GARCIA/Veronica, T PHYSICAL THERAPY / HAND THERAPY [facility] [address] [place] [address] 08/19/2024 09:53:47 08/20/2024 04:51:20 Left lateral elbow tendinopathy 9602457404 32444 M77.12 Debridemen t/Rep. Ulnar nerv e entrapment at elbow 732692564 G56.22 SQUNT [id number] KARENA GARCIA/L, T PHYSICAL THERAPY / HAND TH[facility]APY [facility] [address] [place] [address] 08/26/2024 09:18:58 08/27/2024 05:00:32 Left lateral elbow tendinopathy 8918419209 68003 M77.12 Debridemen t/Rep. Ulnar nerv e entrapment at elbow 778913795 G56.22 SQUNT [id number] KARENA GARCIA/L, T PHYSICAL THERAPY / HAND TH[facility]APY [facility] [address] [place] [address] 09/02/2024 09:15:45 09/03/2024 04:26:40 Left lateral elbow tendinopathy 2934687914 25984 M77.12 Debridemen t/Rep. Ulnar nerv e entrapment at elbow 694649124 G56.22 SQUNT [id number] KARENA GARCIA/Veronica, T PHYSICAL THERAPY / HAND TH[facility]APY [facility] [address] [place] [address] 09/11/2024 08:44:26 09/12/2024 04:32:21 Left lateral elbow tendinopathy 8550468890 51008 M77.12 Debridemen t/Rep. Ulnar nerv e entrapment at elbow 303048139 G56.22 SQUNT [id number] NARINDER RAO MD [facility] [address] [place] [address] 09/30/2024 13:40:37 09/30/2024 14:14:45 Left lateral elbow tendinopathy 9247962042 00323 M77.12 Continue strength rehabilita tion. Initiate work conditioni ng program over the next three weeks to simulate work-relat ed tasks and improve overall arm functional ity. Consider re-evaluat ion upon program completion to assess readiness for full duty return. Ulnar nerv e entrapment at elbow 067810028 G56.22 Monitor ongoing pain symptoms at the incision and along the nerve distributi on. Encourage continuati on of prescribed exercises at home to maintain progress during therapy gaps. Implement work conditioni ng program to further reduce nerve-rela bindu symptoms and enhance strength recovery. Schedule follow-up in three weeks to reassess pain levels and functional capacity. [id number] KARENA GARCIA/L, T PHYSICAL THERAPY / HAND [facility]APY [facility] [address] [place] [address] 10/06/2024 15:19:16 10/07/2024 15:34:06 Left lateral elbow tendinopathy 4128808561 32652 M77.12 Debridemen t/Rep. Ulnar nerv e entrapment at elbow 440654141 G56.22 SQUNT [id number] KARENA PINA/L, T PHYSICAL THERAPY / HAND THERAPY [facility] [address] [place] [address] 10/09/2024 14:39:21 10/10/2024 17:33:52 Left lateral elbow tendinopathy 9529711193 24452 M77.12 Debridemen t/Rep. Ulnar nerv e entrapment at elbow 726752447 G56.22 SQUNT [id number] BASHIR COWAN OTR/L, T PHYSICAL THERAPY / [facility]APY [facility] [address] [place] [address] 10/16/2024 14:15:18 10/17/2024 04:58:28 Left lateral elbow tendinopathy 5712344978 68668 M77.12 Debridemen t/Rep. Ulnar nerv e entrapment at elbow 976462455 G56.22 SQUNT [id number] JAZMIN HAWKINS PA-C [facility] [address] [place] [address] 10/21/2024 13:45:21 10/21/2024 14:28:29 Left lateral elbow tendinopathy 5991604510 81420 M77.12 Doing well status post left lateral epicondyle debridemen t Ulnar nerv e entrapment at elbow 442708661 G56.22 Doing well status post left subcutaneo us ulnar nerve transposit ion [id number] KARENA GARCIA/L, T PHYSICAL THERAPY / [facility]APY [facility] [address] [place] [address] 10/21/2024 13:46:13 10/22/2024 07:39:42 Left lateral elbow tendinopathy 3044769434 29200 M77.12 Debridemen t/Rep. Ulnar nerv e entrapment at elbow 374567625 G56.22 SQUNT [id number] NARINDER RAO MD ORTHOPEDI [address] [place] [address] 06/09/2025 14:09:36 06/09/2025 14:52:11 Right lateral elbow tendinopathy 1795130450 18057 M77.11 [id number] He was asymptomat ic until an acute [...] Carpal padma dylan syndrome of right wrist 4350462664 52480 G56.01 [id number] He is monitoring this, this has been unchanged for some time Health Concerns Section Related Observation LastModified by Organization Detai ls LastModified Time None Recorded Concern Status LastModified by Organization Details LastModified Time None Recorded Advance Directives Directive None Recorded Payers Insurance Date Sequence Insurance Name Policy Number Policy Ortiz Covered Member ID Ortiz Member ID Guarantor Name 06/06/2025 1 [place] [id number] A Rex Sanchez [id number] Rex Sanchez 05/31/2025 [facility] Neil Sanchez 05/31/2025 [facility] Neil Sanchez Notes Date Note Type Note Provider Name and Address Organization Details Recorded Time 10/09/2024 text/html Patient History: Pt reports that his hand surgeon now wants him to transition to more conditioning/strengthe niya now. Pain (0-10): Pain in last 24 hours (0-10:How often symptoms experienced Constantly (76-100%), Frequently (51-75%), Occasionally (26-50%), Intermittently (0-25%): Intermittently DOI:DOS: [id number] Deficits: Pt reports having at least 3 performance deficits that are limiting ADL and IADL functional secondary to having hand/arm surgery/injury.These ADL Deficits specifically are related to: BASHIR COWAN OTR/L, CHT [address] [place], [address], [facility] 10/09/2024 15:56:52 10/16/2024 text/html Patient History: Pt reports that his hand surgeon now wants him to transition to more conditioning/strengthe niya now. Pain (0-10): Pain in last 24 hours (0-10:How often symptoms experienced Constantly (76-100%), Frequently (51-75%), Occasionally (26-50%), Intermittently (0-25%): Intermittently DOI:DOS: [id number] Deficits: Pt reports having at least 3 performance deficits that are limiting ADL and IADL functional secondary to having hand/arm surgery/injury.These ADL Deficits specifically are related to: BASHIR COWAN OTR/L, CHT [address] [place], [address] 10/16/2024 16:47:14 10/21/2024 text/html Patient arrives for scheduled follow-up 15 weeks status post left lateral epicondyle debridement and subcutaneous ulnar nerve transposition. He reports some pain, but the location is at the medial epicondyle. The lateral epicondyle and the nerve release are fine. He does have some numbness along the posterior elbow between the incisions. Consult requested by:Primary Care Physician: Hand dominance: RightLocation: Left Elbow Pain level: 4 /10 Date of injury: 03/09/2024uration: Recent Surgery: YesProcedure: Left lateral epicondyle debridement ; Subcutaneous ulnar nerve transposition Date of surgery: 07/09/2024Surgeon(If Known): Narinder Rao MDTime post surgery: 15 weeks In office procedure? No Previous upper extremity surgery? YesProcedure:Surgeon (if known):Have you or an immediate family member ever seen our hand surgeons before? 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 No Is this injury associated with a Workers Compensation claim? 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 Sanchez is following up to reassess pain levels and functional capacity of left elbow/nerves. Pt reports pain during therapy exercises, says he had to miss therapy Saturday because lt elbow was in so much pain but says it has been doing better since therapy on Saturday. Says he is still having numbess right on elbow. JAZMIN HAWKINS PA-C [address] [place], [address], [facility] 10/21/2024 16:05:02 10/21/2024 text/html Patient History: Pt reports that he is very pleased with his progress overall. Pain (0-10): Pain in last 24 hours (0-10:How often symptoms experienced Constantly (76-100%), Frequently (51-75%), Occasionally (26-50%), Intermittently (0-25%): Intermittently DOI:DOS: [id number] Deficits: Pt reports having at least 3 performance deficits that are limiting ADL and IADL functional secondary to having hand/arm surgery/injury.These ADL Deficits specifically are related to: MACK GARCIA, OTR/L, CHT [address] [place], [address], [facility] 10/21/2024 15:50:06 06/09/2025 text/html Consult requested by: [facility] Care Physician: Hand dominance: RightLocation: Right Elbow Pain level: 5 /10 - at worst Date of injury: 05/11/2025Duration: 4 weeks Recent Surgery: YesProcedure: Left lateral epicondyle debridement ; Left Subcutaneous ulnar nerve transpositionDate of surgery: 07/09/2024uration: 11 monthsSurgeon(If Known): Narinder Rao MD In office procedure? No Previous upper extremity surgery? YesProcedure:Surgeon (if known):Have you or an immediate family member ever seen our hand surgeons before? 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 YesIs this injury associated with a Workers Compensation claim? Yes Patient arrived in: OT splint Biofuels Technology Development Manager Strength: right: left: Mr. Sanchez is here [...] has been doing [facility] at [facility] (EMG for lt in chart, has not had EMG for rt hand) NARINDER ARO MD [address] [place] [address], [address], [facility] - [facility] 06/09/2025 14:42:42
--- OUTSIDE RECORDS SUMMARY | 2025-07-26 11:37 | XMS_ITS | Encounter Summary ---
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 He will need to call Conner [facility] and [facility] about approval or reschedule. Asked TM to call with an update tomorrow or Saturday. Yoli Serrano RN documented in this encounter Plan of Treatment Not on file documented as of this encounter Visit Diagnoses Not on filedocumented in this encounter Care Teams Sales And Marketing Coordinator Relationship Specialty Start Date End Date Provider, [place] [address] PCP - General Speech Therapist Early Intervention 01/15/22 documented as of this encounter
--- OUTSIDE RECORDS SUMMARY | 2025-07-26 11:37 | XMS_ITS | Encounter Summary ---
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
--- OUTSIDE RECORDS SUMMARY | 2025-07-26 11:37 | XMS_ITS | Encounter Summary ---
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 MRI pending Workers comp approval. He will call later this week with update or when approved so we can scheduled [facility] follow up after MRI/Specialist. Yoli Serrano RN documented in this encounter Plan of Treatment Not on file documented as of this encounter Visit Diagnoses Not on filedocumented in this encounter Care Teams Language Tutor Relationship Specialty Start Date End Date Provider, ROMINA Gage [id number] PCP - General Veneer Patcher 01/15/22 documented as of this encounter
== END 2025-07-23 23:59 ==
LOC: LAB.DROPOF 07-26 11:34
PROVIDERS: PCP Nurse Practitioner Family; Visit Provider Nurse Practitioner Family
DX: D58.2 Other hemoglobinopathies (principal); R25.2 Cramp and spasm
CPT/HCPCS: 80053; 85025